=== PATIENT | female | born 1970 | race Caucasian/White ===

== ENCOUNTER 2020-06-21 10:53 | Emergency (ER) | payer BC | END 2020-06-21 11:49 | disposition home or self-care (01) | LOC: JVIRT 10:53 | DX: Z20.822 Contact with and (suspected) exposure to COVID-19 (principal) | CPT/HCPCS: C9803; G2251-GT; U0003 ==

== ENCOUNTER 2020-06-25 11:19 | Emergency (ER) | payer BC | END 2020-06-25 11:44 | disposition home or self-care (01) | LOC: JVIRT 11:19 | DX: Z20.822 Contact with and (suspected) exposure to COVID-19 (principal) | CPT/HCPCS: C9803; G2251-GT; U0003 ==